=== PATIENT | male | born 1965 | race Caucasian/White ===

== ENCOUNTER 2017-09-24 07:22 | Emergency (ER) | payer BC ==
[2017-09-24 08:40] LABS: #Basophils 0.1 thou/uL (0.0-0.2); #Eosinphils 0.3 thou/uL (0.0-0.7); #Lymphocytes 1.6 thou/uL (1.20-3.40); #Monocytes 0.4 thou/uL (0.11-0.59); #Neutrophils 4.9 thou/uL (1.40-6.50); %Basophils 1.1 % (0.0-1.0); %Eosinophils 3.7 % (0.0-10.0); %Lymphocytes 22.2 % (21.0-51.0); Hemoglobin 14.5 g/dL (14.0-18.0); Mean Corpuscular HGB CONC 32.1 g/dL (32.0-36.0); Mean Corpuscular Hemoglobin 29.3 pg (27.0-31.0); Mean Corpuscular Volume 91.2 fl (80.0-94.0); Mean Platelet Volume 7.1 fL (7.4-10.4); Platelet Count 181 thou/uL (130-400); RBC Distribution Width 12.5 % (11.5-14.5); Red Blood Cell (RBC) Count 4.96 mill/uL (4.70-6.10); White Blood Cell (WBC) Count 7.3 thou/uL (4.8-10.8)
[2017-09-24 08:49] LABS: Anion Gap 12 mmol/L (10-20); BUN (Urea Nitrogen) 11 mg/dL (8.9-20.6); Calc. Creatinine Clearance 0 mL/min (70-130); Calcium 9.1 mg/dL (7.8-10.44); Carbon Dioxide 32 mmol/L (22-29); Chloride 102 mmol/L (98-107); Estimated GFR-MDRD Greater than 90; Glucose 104 mg/dL (70-105); Potassium 4.6 mmol/L (3.5-5.1); Sodium 141 mmol/L (136-145)
--- NOTE | 2017-09-24 09:23 | RAD ---
FOUR VIEWS RIGHT KNEE: DATE: 09/24/17. HISTORY: Left knee pain and swelling after a fall yesterday. FINDINGS: No acute fracture or dislocation is visualized. There is a tiny approximately 2-3 mm osseous density overlying the lateral tibial spine which is located anterior to the lateral tibial spine suggesting intraarticular loose body. There is no joint space narrowing present. Prominent subcutaneous soft t issue swelling is seen anterior to the knee. No obvious joint effusion is present. IMPRESSION: 1. Subcutaneous soft tissue swelling without evidence of an acute fracture. 2. Approximately 2-3 mm intraarticular loose body anterior to the lateral tibial spine. POS: [facility]
== END 2017-09-24 09:05 | disposition home or self-care (01) ==
LOC: SCSER 07:22
DX: S80.01XA Contusion of right knee, initial encounter (principal); W19.XXXA Unspecified fall, initial encounter; Y99.0 Civilian activity done for income or pay
CPT/HCPCS: 36415; 80048; 85025